=== PATIENT | female | born 1960 | race Caucasian/White ===

== ENCOUNTER 2016-05-21 03:01 | Observation (INO) | payer OTHER ==
[~2016-05-21] VITALS: Ht 154.9 cm; Wt 96.5 kg
[2016-05-21] VITALS (9 sets, daily range): BP systolic 113–173; BP diastolic 62–113; PULSE 69–84; RESP 18–20; TEMP 96.9–98.1; O2SAT 94–99
[~2016-05-21 03:01] MED LIST: MOBI15TA PO
[2016-05-21] MEDS ORDERED: diphenhydrAMINE HCL 50 MG/ML VIAL IVP ONE (03:15)
[2016-05-21] MEDS ORDERED: FAMOTIDINE 20 MG/2 ML VIAL IV PUSH ONE (03:15)
[2016-05-21] MEDS ORDERED: methylPREDNISolone SOD SUCC 125 MG/2 ML VIAL IVP ONE (03:15)
[2016-05-21] MEDS ORDERED: SODIUM CHLORIDE 0.9% FLUSH 5 ML FLUSH IVF PRN ×2 (03:15→05:30)
--- NOTE | 2016-05-21 03:16 | PD ---
HPI Chief Complaint: allergic reaction Time Seen by Provider: 03:11 Travel History International Travel<30 days: No Contact w/Intl Traveler<30days: No Traveled to known affect area: No History of Present Illness HPI 55-year-old female presents to the emergency department by private transportation for acute allergic reaction. Patient states just prior to arrival to the emergency department she was awakened with sharp pain in the epigastric region and then noticed pruritus and looked in mirror and saw extensive hives; subsequently noticed swelling of the chin and redness and pruritus of the hands. Patient has had allergic reaction before but not to this extent. Patient denies any history of hereditary angioedema. Patient denies any tongue or throat swelling. No stridor or hoarseness. No shortness of breath or wheezing. No palpitations. No near-syncope or syncope. Patient is on certain as to what may have triggered this event. Patient has started a new medication within the past week called Belviq for weight loss. Patient continues to complain of sharp pain underneath her right breast that was initially retrosternal, 3/10 in intensity. [facility] Past Medical History Narrative Medical Pericarditis, dyslipidemia, ovarian cysts, occasional alcohol use; nursing notes reviewed Heart Rhythm Problems: No Cardiac Catheterization: No Cardiovascular Problems: No High Cholesterol: No Chest Pain: Yes Congestive Heart Failure: No Diabetes: No Diminished Hearing: No Hypertension: No Myocardial Infarction: No Menopausal: Yes : 2 Para: 2 Ovarian Cysts: Yes Past Surgical History Coronary Artery Bypass Graft: No Social History Alcohol Use: Yes (OCCASIONAL) Tobacco Use: No (QUIT 15 YRS AGO) Substance Use: No Allergies-Medications (Allergen,Severity, Reaction): Coded Allergies: Compazine (Verified Allergy, Severe, SHAKING, 05/21/16) Phenergan (Verified Adverse Reaction, Mild, UNCONTROLLED SHAKING, 05/21/16) PT DENIES ALLERGY TO THIS MED 10-25-14, PT ALSO STATES NOT 100% SURE IF SHE IS NOT Reported Meds & Prescriptions Reported Meds & Active Scripts Active Reported Belviq (Lorcaserin) 10 Mg Tab 10 Mg PO BID Zantac 75 (Ranitidine HCl) 75 Mg Tab 75 Mg PO DAILY Take 30 to 60 minutes before eating food or drinking beverages that cause heartburn. Review of Systems Except as stated in HPI: all other systems reviewed are Neg Physical Exam Narrative GENERAL: Well-developed well-nourished female in no acute distress no respiratory distress; no stridor no hoarseness. SKIN: Warm and dry. Edema of the chin and diffuse urticaria with erythema of the palmar aspect of the hands HEAD: Normocephalic. EYES: No scleral icterus. No injection or drainage. NECK: Supple, trachea midline. No JVD or lymphadenopathy. CARDIOVASCULAR: Regular rate and rhythm without murmurs, gallops, or rubs. RESPIRATORY: Breath sounds equal bilaterally. No accessory muscle use. GASTROINTESTINAL: Abdomen soft, non-tender, nondistended. MUSCULOSKELETAL: No cyanosis, or edema. BACK: Nontender without obvious deformity. No CVA tenderness. Data Data Last Documented VS Vital Signs Date Time Temp Pulse Resp B/P Pulse Ox O2 Delivery O2 Flow Rate FiO2 05/21/16 05:07 80 20 113/62 99 Orders Ecg Monitoring (05/21/16 03:11) Iv Access Insert/Monitor (05/21/16 03:11) Oximetry (05/21/16 03:11) Diphenhydramine Inj (Benadryl Inj) (05/21/16 03:15) Methylprednisolone So Succ Inj (Solumedr (05/21/16 03:15) Famotidine Inj (Pepcid Inj) (05/21/16 03:15) Sodium Chloride 0.9% Flush (Ns Flush) (05/21/16 03:15) Electrocardiogram (05/21/16 ) Complete Blood Count With Diff (05/21/16 03:16) Basic Metabolic Panel (Bmp) (05/21/16 03:16) Troponin I (05/21/16 03:16) Aspirin Chew (Aspirin Chew) (05/21/16 04:30) Nitroglycerin Sl (Nitrostat Sl) (05/21/16 04:30) Sodium Chlor 0.9% 1000 Ml Inj (Ns 1000 M (05/21/16 04:30) Ckmb (Isoenzyme) Profile (05/21/16 05:12) Act Partial Throm Time (Ptt) (05/21/16 05:12) Prothrombin Time / Inr (Pt) (05/21/16 05:12) Labs Laboratory Tests Test 05/21/16 03:40 White Blood Count 10.3 TH/MM3 Red Blood Count 4.94 MIL/MM3 Hemoglobin 13.9 GM/DL Hematocrit 41.9 % Mean Corpuscular Volume 84.8 FL Mean Corpuscular Hemoglobin 28.0 PG Mean Corpuscular Hemoglobin 33.0 % Concent Red Cell Distribution Width 12.8 % Platelet Count 254 TH/MM3 Mean Platelet Volume 9.1 FL Neutrophils (%) (Auto) 63.5 % Lymphocytes (%) (Auto) 27.8 % Monocytes (%) (Auto) 7.0 % Eosinophils (%) (Auto) 1.2 % Basophils (%) (Auto) 0.5 % Neutrophils # (Auto) 6.5 TH/MM3 Lymphocytes # (Auto) 2.9 TH/MM3 Monocytes # (Auto) 0.7 TH/MM3 Eosinophils # (Auto) 0.1 TH/MM3 Basophils # (Auto) 0.1 TH/MM3 CBC Comment DIFF FINAL Differential Comment Sodium Level 140 MEQ/L Potassium Level 4.2 MEQ/L Chloride Level 106 MEQ/L Carbon Dioxide Level 25.0 MEQ/L Anion Gap 9 MEQ/L Blood Urea Nitrogen 19 MG/DL Creatinine 0.91 MG/DL Estimat Glomerular Filtration 64 ML/MIN Rate Random Glucose 102 MG/DL Calcium Level 8.4 MG/DL Troponin I LESS THAN 0.02 NG/ML MDM Medical Decision Making Medical Screen Exam Complete: Yes Emergency Medical Condition: Yes Medical Record Reviewed: Yes Interpretation(s) EKG: Normal sinus rhythm rate [address] elevation or injury pattern change noted Differential Diagnosis Acute allergic reaction, idiopathic urticaria, angioedema, anaphylaxis, chest pain, ACS, atypical chest pain Narrative Course Patient placed on panel monitor IV access obtained specimens collected and sent for resulting; EKG ordered triage filling no acute ST elevation or injury pattern; patient administered Benadryl 25 mg IV Solu-Medrol 125 mg IV and Pepcid 20 mg IV; in view of hypertension and complaint of initial chest pain at this time will defer administration of epinephrine unless patient is not showing evidence of resolution of symptoms or there is worsening of symptoms. At 4:30 AM patient is clinically improved swelling of the chin and has markedly decreased urticaria erythema is lessening and palmar pruritus has resolved. Patient however continues to complain of chest pain now primarily underneath the right breast without associated pleuritic pain or shortness of breath; on physical exam patient does have palpable/reproducible chest wall pain with direct palpation underneath the right breast without any abdominal pain to palpation and no clinical Lee sign. No nausea or vomiting. Blood pressure remains elevated but has improved. EKG shows no acute injury pattern change and troponin I has been result is less than 0.02 patient's cardiac risk factor female age over 50 with dyslipidemia and family history of heart disease with grandfather passing away at age 60 remote tobacco use but has not used tobacco greater than 10 years so not significant risk factor at this time. Patient administered aspirin 162 mg by mouth and a one-time dose of sublingual nitroglycerin. Patient had cardiac evaluation to chest pain center approximately 10 years ago which revealed a low cardiac risk nuclear stress test. After sublingual NTG x 1 dose 3/10 chest pain resolved to 0/10 chest pain Physician Communication Physician Communication case discussed with [facility] , Dr Laguerre--[facility] Diagnosis Primary Impression: Chest pain Qualified Code: R07.2 - Precordial pain Additional Impression: Allergic reaction Qualified Code: T78.40XA - Allergic reaction, initial encounter Admitting Information Admitting Physician Requests: Observation Ute Metcalf MD May 21, 2016 03:16
[2016-05-21 03:51] LABS: AUTOMATED NEUTROPHIL # 6.5 TH/MM3 (1.8-7.7); BASOPHIL # 0.1 TH/MM3 (0-0.2); BASOPHIL % 0.5 % (0.0-2.0); EOSINOPHIL # 0.1 TH/MM3 (0-0.4); EOSINOPHIL % 1.2 % (0.0-4.0); HEMATOCRIT 41.9 % (35.0-46.0); HEMO FLAGS DIFF FINAL; LYMPH % 27.8 % (9.0-44.0); LYMPHOCYTE # 2.9 TH/MM3 (1.0-4.8); MEAN CELL VOLUME 84.8 FL (80.0-100.0); NEUT % 63.5 % (16.0-70.0); PLATELET COUNT 254 TH/MM3 (150-450); RED BLOOD COUNT 4.94 MIL/MM3 (4.00-5.30); RED CELL DISTRIBUTION WIDTH 12.8 % (11.6-17.2); WHITE BLOOD COUNT 10.3 TH/MM3 (4.0-11.0)
[2016-05-21 04:05] LABS: CHLORIDE 106 MEQ/L (98-107); POTASSIUM 4.2 MEQ/L (3.5-5.1); SODIUM (NA) 140 MEQ/L (136-145)
[2016-05-21 04:08] LABS: ANION GAP 9 MEQ/L (5-15); BLOOD UREA NITROGEN 19 MG/DL (7-18)
[2016-05-21 04:11] LABS: GLOMERULAR FILTRATION RATE 64 ML/MIN (>89)
[2016-05-21] MEDS ORDERED: LORC10TA24 PO (04:21)
[2016-05-21] MEDS ORDERED: ZANTTAB9 PO (04:21)
[2016-05-21] MEDS ORDERED: NITROGLYCERIN 0.4 MG SL 25 TABS/BTL SL ONE (04:30)
[2016-05-21] MEDS ORDERED: ASPIRIN 81 MG CHEW TAB CHEW ONE (04:30)
[2016-05-21] MEDS ORDERED: SODIUM CHLOR 0.9% 1000 ML INJ 1,000 ML IV SCH (04:30)
[2016-05-21] MEDS ORDERED: NITROGLYCERIN 0.4 MG SL 25 TABS/BTL SL PRN (05:30)
[2016-05-21] MEDS ORDERED: ALPRAZolam 0.25 MG TAB PO PRN (05:30)
[2016-05-21] MEDS ORDERED: diphenhydrAMINE HCL 50 MG/ML VIAL IV PUSH PRN (05:30)
[2016-05-21 05:31] LABS: CREATINE KINASE 135 U/L (26-192)
[2016-05-21 05:49] LABS: CKMB 0.8 NG/ML (0.5-3.6)
[2016-05-21 05:54] LABS: APTT (PATIENT) 27.9 SEC (24.3-30.1); PROTHROMBIN TIME - PATIENT 10.5 SEC (9.8-11.6)
[2016-05-21 07:27] LABS: CREATINE KINASE 101 U/L (26-192)
[2016-05-21] MEDS ORDERED: SODIUM CHLORIDE 0.9% FLUSH 5 ML FLUSH IVF SCH (09:00)
--- NOTE | 2016-05-21 11:06 | HHI.HP ---
[facility] [place] [facility] Primary [facility] Physician aDmon Smith MD Admission Diagnosis chest pain; allergic reaction Diagnoses: (1) Allergic reaction Diagnosis: Principal (2) Chest pain Diagnosis: Principal (3) Hyperlipidemia Diagnosis: Secondary (4) History of tobacco use Diagnosis: Secondary Chief Complaint: allergic reaction Travel History International Travel<30 Days: No Contact w/Intl Traveler <30 Da: No Traveled to Known Affected Are: No History of Present Illness 55-year-old female with known history of gastroesophageal reflux, hyperlipidemia who presented to hospital because of a reaction and epigastric lower chest discomfort. Patient states that she is in normal state of health until approximately 1 AM this morning when she woke up and she had a burning/ sharp sensation underneath her right lower rib and epigastric region. She got out of bed and noticed that she had a rash on her bilateral flanks, her palms or itching, and she noticed that her chin and neck were swelling. The patient has had previous reactions before in the past approximately 10 years ago. The patient came to emergency department and was given signed Medrol, Benadryl, Pepcid with improvement of her allergic reaction. They have tried to evaluate if she is 7 any new food, changed any deodorants, detergents, anything that is new that would cause her to have a reaction. They cannot think of any environmental changes. Patient continued to have the right lower chest and epigastric discomfort which remains like a constant pain. 3/10 on a pain scale. The discomfort did not improve despite treatments done emergency department. Patient states that she has had cardiac workup done prostate 10 years ago also and it was unremarkable. Patient does have increased risk factors with age, hyperlipidemia, family history heart disease, history of tobacco use. Because of risk factors is recommended by the ER physician that the patient be observed in the chest pain center for further evaluation and management. Patient denied any radiation of pain, nausea, vomiting, diaphoresis , shortness of breath, dyspnea, lightheadedness, dizziness. Review of Systems Constitutional: DENIES: Diaphoretic episodes, Fatigue, Fever, Weight gain, Weight loss, Chills, Dizziness, Change in appetite, Night Sweats Eyes: DENIES: Blurred vision, Diplopia, Eye inflammation, Eye pain, Vision loss , Double Vision Ears, nose, mouth, throat: DENIES: Vertigo, Nasal discharge, Throat pain, Ear Pain, Running Nose, Sinus Pain Respiratory: DENIES: Apneas, Cough, Snoring, Wheezing, Hemoptysis, Sputum production, Shortness of breath Cardiovascular: COMPLAINS OF: Chest pain, DENIES: Palpitations, Syncope, Dyspnea on Exertion, Lower Extremity Edema, Orthopnea Gastrointestinal: COMPLAINS OF: Abdominal pain, DENIES: Black stools, Bloody stools, Constipation, Diarrhea, Nausea, Vomiting, Difficulty Swallowing, Anorexia Neurologic: DENIES: Abnormal gait, Headache, Localized weakness, Paresthesias, Seizures, Speech Problems, Tremor, Poor Balance Past Family Social History Past Medical History Hyperlipidemia History of tobacco use Past Surgical History Cervical ablation Reported Medications Reported Meds & Active Scripts Active Reported Belviq (Lorcaserin) 10 Mg Tab 10 Mg PO BID Zantac 75 (Ranitidine HCl) 75 Mg Tab 75 Mg PO DAILY Take 30 to 60 minutes before eating food or drinking beverages that cause heartburn. Allergies: Coded Allergies: Compazine (Verified Allergy, Severe, SHAKING, 05/21/16) Phenergan (Verified Adverse Reaction, Mild, UNCONTROLLED SHAKING, 05/21/16) PT DENIES ALLERGY TO THIS MED 10-25-14, PT ALSO STATES NOT 100% SURE IF SHE IS NOT Family History Reviewed and significant for mother with Berna Gehrig's disease. Grandfather with heart disease Social History Patient quit smoking 15 years ago, prior to that patient smoked 1 pack per day since she was 17 years old. Patient brings alcohol rarely. Denies illicit drugs. Physical Exam Vital Signs Vital Signs Date Time Temp Pulse Resp B/P Pulse Ox O2 Delivery O2 Flow Rate FiO2 05/21/16 08:00 98.1 81 18 134/88 98 05/21/16 06:00 72 20 145/70 95 05/21/16 05:39 99 05/21/16 05:30 74 20 134/87 98 05/21/16 05:07 80 20 113/62 99 05/21/16 04:48 20 05/21/16 04:28 71 20 150/95 95 05/21/16 04:11 20 98 05/21/16 04:02 98.1 83 18 173/113 96 05/21/16 03:35 69 20 164/87 95 Physical Exam GENERAL: Well-developed, well-nourished, in no acute distress. alert and orientated HEENT: Head is normocephalic without any lesions or masses noted. Facial features are symmetric. Eyes: Pupils equal round reactive to light. Extraocular muscles are intact. Conjunctivae were clear. Oropharyngeal: Pharynx without any erythema edema. Tongue is midline without deviation. Buccal mucosa is moist without any masses or lesions NECK: Supple without any masses. Trachea midline no deviation. No JVD, no bruits are appreciated CARDIAC: Regular rhythm, regular rate. S1/S2 are heard. No murmurs gallops or rubs. LUNGS: Clear to auscultation bilaterally. No wheeze, rhonchi or rales. No use of accessory muscles on inspiration or expiration. ABDOMEN: Soft, nontender. Nondistended. Bowel sounds heard in all 4 quadrants. No organomegaly or masses. Negative rebound, negative guarding EXTREMITIES: No edema, pulses are equal bilaterally. No cyanosis or clubbing NEUROLOGY: Mood and affect appear appropriate. Cranial nerves II through XII grossly intact. Muscle strength 5/5 in upper and lower extremities bilaterally. Deep tendon reflexes are 2+ in upper and lower extremities bilaterally. Laboratory Laboratory Tests Test 05/21/16 05/21/16 05/21/16 03:40 05:30 06:50 White Blood Count 10.3 Red Blood Count 4.94 Hemoglobin 13.9 Hematocrit 41.9 Mean Corpuscular Volume 84.8 Mean Corpuscular Hemoglobin 28.0 Mean Corpuscular Hemoglobin 33.0 Concent Red Cell Distribution Width 12.8 Platelet Count 254 Mean Platelet Volume 9.1 Neutrophils (%) (Auto) 63.5 Lymphocytes (%) (Auto) 27.8 Monocytes (%) (Auto) 7.0 Eosinophils (%) (Auto) 1.2 Basophils (%) (Auto) 0.5 Neutrophils # (Auto) 6.5 Lymphocytes # (Auto) 2.9 Monocytes # (Auto) 0.7 Eosinophils # (Auto) 0.1 Basophils # (Auto) 0.1 CBC Comment DIFF FINAL Differential Comment Sodium Level 140 Potassium Level 4.2 Chloride Level 106 Carbon Dioxide Level 25.0 Anion Gap 9 Blood Urea Nitrogen 19 Creatinine 0.91 Estimat Glomerular Filtration 64 Rate Random Glucose 102 Calcium Level 8.4 Total Creatine Kinase 135 101 Creatine Kinase MB 0.8 1.0 Troponin I LESS THAN 0.02 LESS THAN 0.02 Prothrombin Time 10.5 Prothromb Time International 1.0 Ratio Activated Partial 27.9 Thromboplast Time Result Diagram: 05/21/1633905/21/16339 Assessment and Plan Assessment and Plan --Allergic reaction: improved S/P solumedrol, Benadryl, pepcid. Will discharge patient with prednisone 20 mg twice daily, continue Pepcid, Benadryl. --Chest pain, Atypical: Patient ruled out for acute coronary event with serial cardiac enzymes which are negative, serial EKGs shows sinus rhythm without any changes. Patient was counseled on her increased risk factors to include age, hyperlipidemia, family history heart disease, history of tobacco use. Notified her that because of the results and we have at this time she has not had a heart attack or any cardiac injury. Recommended patient undergo cardiac stress testing. Patient is deferring that at this time. Patient would like to follow- up with her primary medical doctor Dr. Smith in order to have further testing done in outpatient setting. Dr. Springer also notify the patient of her risk factors, need to evaluate with cardiac testing including stress test. Wrist were addressed with the patient and her and her do understand. Patient was notified to take an aspirin on a daily basis for cardiac protection. Follow-up with her primary medical doctor as soon as possible. Return to hospital if she develops worsening pain or any nausea, vomiting diaphoresis, radiation of pain. DVT prevention: Low risk, early ambulation Written by Behzad Tanner PA-C, acting as scribe for Dr. Springer on 05/21/16 at 1200. The documentation accurately reflects the work and decisions performed face-to- face by Dr. Springer on 05/21/16 at 1200. Discharge disposition Discharge home in stable condition Activity: Ad niles. Diet: Healthy heart diet Medications per medication reconciliation Follow-up primary medical doctor one week Problem Qualifiers (1) Allergic reaction: Qualified Code: T78.40XA - Allergic reaction, initial encounter (2) Chest pain: Qualified Code: R07.2 - Precordial pain (3) Hyperlipidemia: Qualified Code: E78.5 - Hyperlipidemia, unspecified hyperlipidemia type Behzad Tanner May 21, 2016 11:06
[2016-05-21 11:07] LABS: CREATINE KINASE 98 U/L (26-192)
[2016-05-21] MEDS ORDERED: ASPI81TA11 PO (12:13)
[2016-05-21] MEDS ORDERED: PRED20 PO (12:13)
[2016-05-21] MEDS ORDERED: BENA25TA3 PO (12:13)
--- NOTE | 2016-05-21 12:13 | HHI.DCPOC ---
Discharge Care Plan Diagnosis: (1) Chest pain (2) Allergic reaction Goals to Promote Your Health * To prevent worsening of your condition and complications * To maintain your health at the optimal level Directions to Meet Your Goals Take your medications as prescribed Follow your dietary instruction Follow activity as directed Keep your appointments as scheduled Take your immunizations and boosters as scheduled If your symptoms worsen call your PCP, if no PCP go to Urgent Care Center or Emergency Room Smoking is Dangerous to Your Health. Avoid second hand smoke Call the 24-hour hour crisis hotline for domestic abuse at Behzad Tanner May 21, 2016 12:13
--- NOTE | 2016-05-21 19:36 | EKG ---
Date Performed: 05/21/2016 Time Performed: 03:12:00 PTAGE: 55 years EKG: Sinus rhythm . Low QRS voltages in precordial leads Since previous tracing, no significant change noted Borderline ECG PREVIOUS TRACING : 06/03/2013 11.11 DOCTOR: Ben Castrejon Interpretating Date/Time 05/21/2016 19:34:38
--- NOTE | 2016-05-21 19:36 | EKG ---
Date Performed: 05/21/2016 Time Performed: 06:34:04 PTAGE: 55 years EKG: Sinus rhythm . Low QRS voltages in precordial leads Since previous tracing, no significant change noted Borderline ECG PREVIOUS TRACING : 05/21/2016 03.12 DOCTOR: Ben Castrejon Interpretating Date/Time 05/21/2016 19:34:49
--- NOTE | 2016-05-22 14:33 | EKG ---
Date Performed: 05/21/2016 Time Performed: 10:35:36 PTAGE: 55 years EKG: Sinus rhythm . Low QRS voltages in precordial leads Compared to prior tracing no significant change Borderline ECG PREVIOUS TRACING 05/21/16 @ 06.34.04 DOCTOR: Ben Castrejon Interpretating Date/Time 05/22/2016 14:32:06
== END 2016-05-21 13:17 | disposition home or self-care (01) ==
LOC: PHED 03:01 → PHEDA 05:24 → PH3A 07:42
PROVIDERS: ADMIT Family Medicine; ATTEND Family Medicine
DX: R07.2 Precordial pain (principal); L29.9 Pruritus, unspecified; E78.5 Hyperlipidemia, unspecified; K21.9 Gastro-esophageal reflux disease without esophagitis; R21 Rash and other nonspecific skin eruption; Z82.49 Family history of ischemic heart disease and other diseases of the circulatory system; Z87.891 Personal history of nicotine dependence
CPT/HCPCS: 80048; 82550; 82552; 84484; 85025; 85610; 85730; 93005; 96361; 96374; 96375; 99285; G0378; J1200; J2930; J7030

== ENCOUNTER 2016-05-23 08:03 | Emergency (ER) | payer OTHER ==
[~2016-05-23 08:03] MED LIST changes: +ASPI81TA11 PO; +BENA25TA3 PO; +LORC10TA24 PO; -MOBI15TA PO; +PRED20 PO; +ZANTTAB9 PO
[2016-05-23 08:08] VITALS: BP 169/87; PULSE 83; RESP 18; TEMP 98; O2SAT 99
[2016-05-23] MEDS ORDERED: EPINEPHrine HCL (1:1000) 1 MG/ML VIAL IM ONE (08:15)
[2016-05-23] MEDS ORDERED: SODIUM CHLORIDE 0.9% FLUSH 5 ML FLUSH IVF PRN ×2 (08:15→08:30)
[2016-05-23] MEDS ORDERED: methylPREDNISolone SOD SUCC 125 MG/2 ML VIAL IVP ONE (08:15)
[2016-05-23 08:21] VITALS: O2SAT 98
[2016-05-23 08:23] VITALS: BP 150/84; PULSE 77; RESP 18; O2SAT 98
[2016-05-23] MEDS ORDERED: FAMOTIDINE 20 MG/2 ML VIAL IV PUSH ONE (08:30)
[2016-05-23] MEDS ORDERED: ZYRT10CA PO (08:33)
[2016-05-23] MEDS ORDERED: PRED20 PO (08:33)
[2016-05-23] MEDS ORDERED: ZANT300T PO (08:33)
--- NOTE | 2016-05-23 08:34 | PD ---
HPI Chief Complaint: Allergic/Adverse Reaction Time Seen by Provider: 08:13 Travel History International Travel<30 days: No Contact w/Intl Traveler<30days: No Traveled to known affect area: No History of Present Illness HPI 55 years old female complains of itching rash, throat swelling. Patient started having itching rash and chest pain which she was admitted overnight 2 nights ago to the chest pain center and discharge the next morning. Patient was discharged home on prednisone, Pepcid and Benadryl. Patient did not take any prednisone or Benadryl yesterday. Patient has been taking Pepcid nightly. Patient states that she started having increasing throat swelling and itching rash to the face this morning. Patient took Benadryl, 50 mg by mouth, this morning. Patient denies any chest pain or shortness of breath. Patient was given prescription Belviq, for weight loss lost about a week ago. PFSH Past Medical History Heart Rhythm Problems: No Cancer: No Cardiac Catheterization: No Cardiovascular Problems: Yes (this admissin) High Cholesterol: No Chest Pain: Yes (this admission) Congestive Heart Failure: No Diabetes: No Diminished Hearing: No Endocrine: No Genitourinary: No Hypertension: No Musculoskeletal: Yes (arthritis of feet) Neurologic: No (allergies with chin and hands swelling) Psychiatric: No Reproductive: No Respiratory: No Myocardial Infarction: No ?: Not Menopausal: Yes : 2 Para: 2 Ovarian Cysts: Yes Past Surgical History Coronary Artery Bypass Graft: No Social History Alcohol Use: Yes (OCCASIONAL) Tobacco Use: No (QUIT 15 YRS AGO) Substance Use: No Allergies-Medications (Allergen,Severity, Reaction): Coded Allergies: Compazine (Verified Allergy, Severe, SHAKING, 05/21/16) Phenergan (Verified Adverse Reaction, Mild, UNCONTROLLED SHAKING, 05/21/16) PT DENIES ALLERGY TO THIS MED 10-25-14, PT ALSO STATES NOT 100% SURE IF SHE IS NOT Reported Meds & Prescriptions Reported Meds & Active Scripts Active Aspirin EC (Aspirin) 81 Mg Tabdr 81 Mg PO DAILY Benadryl Allergy (Diphenhydramine HCl) 25 Mg Tab 25 Mg PO Q6H 3 Days Reported Belviq (Lorcaserin) 10 Mg Tab 10 Mg PO BID Zantac 75 (Ranitidine HCl) 75 Mg Tab 75 Mg PO DAILY Take 30 to 60 minutes before eating food or drinking beverages that cause heartburn. Review of Systems General / Constitutional: No: Fever Eyes: No: Visual changes HENT: No: Headaches Cardiovascular: No: Chest Pain or Discomfort Respiratory: No: Shortness of Breath Gastrointestinal: No: Abdominal Pain Genitourinary: No: Dysuria Musculoskeletal: No: Pain Skin: Positive Rash, Positive Itching Neurologic: No: Weakness Psychiatric: No: Depression Endocrine: No: Polydipsia Hematologic/Lymphatic: No: Easy Bruising Physical Exam Narrative GENERAL: Well-nourished, well-developed patient. SKIN: Warm and dry. Patient has hives over the face and neck. HEAD: Normocephalic. EYES: No scleral icterus. No injection or drainage. Throat no edema noted. NECK: Supple, trachea midline. No JVD or lymphadenopathy. CARDIOVASCULAR: Regular rate and rhythm without murmurs, gallops, or rubs. RESPIRATORY: Breath sounds equal bilaterally. No accessory muscle use. No stridor or wheezes. GASTROINTESTINAL: Abdomen soft, non-tender, nondistended. MUSCULOSKELETAL: No cyanosis, or edema. BACK: Nontender without obvious deformity. No CVA tenderness. Neurologic exam normal. Data Data Last Documented VS Vital Signs Date Time Temp Pulse Resp B/P Pulse Ox O2 Delivery O2 Flow Rate FiO2 05/23/16 08:08 98.0 83 18 169/87 99 Orders Ecg Monitoring (05/23/16 08:13) Iv Access Insert/Monitor (05/23/16 08:13) Oximetry (05/23/16 08:13) Methylprednisolone So Succ Inj (Solumedr (05/23/16 08:15) Sodium Chloride 0.9% Flush (Ns Flush) (05/23/16 08:15) Epinephrine (1:1000) Inj (Adrenalin (1:1 (05/23/16 08:15) MDM Medical Decision Making Medical Screen Exam Complete: Yes Emergency Medical Condition: Yes Differential Diagnosis Differential diagnosis including hives, allergic reaction, anaphylactoid reaction. Narrative Course 55 years old female with itching rash of face and trouble swallowing. Patient being treated for allergic reaction which started 2 days ago. Patient took Benadryl 50 mg by mouth this morning prior to arrival. Epinephrine 0.3 mg IM. Solu-Medrol 125 mg IV. Pepcid 20 mg IV. Diagnosis Primary Impression: Allergic reaction Qualified Code: T78.40XA - Allergic reaction, initial encounter Patient Instructions: General Instructions Additional Instructions: Stop weight loss medication. Take medications as directed. Follow-up with personal physician. Return if worse. Return immediately if increasing shortness of breath chest pain worsening of the rash. Med/Other Pt SpecificInfo: Prescription(s) given Scripts Ranitidine (Zantac)300 Mg [id number] Mg PO DAILY #10 TAB Ref 0 Prov:Henri Urbina MD 05/23/16 Cetirizine (Zyrtec Allergy)10 Mg Cap10 Mg PO DAILY #10 CAP Ref 0 Prov:Henri Urbina MD 05/23/16 Prednisone 20 Mg Tab20 Mg PO BID #10 TAB Prov:Henri Urbina MD 05/23/16 Disposition: 01 DISCHARGE HOME Condition: Stable Henri Urbina MD May 23, 2016 08:33
== END 2016-05-23 08:54 | disposition home or self-care (01) ==
LOC: PHED 08:03
DX: T78.40XA Allergy, unspecified, initial encounter (principal)
CPT/HCPCS: 96372; 96374; 96375; 99283; J0171; J2930